=== PATIENT | male | born 1985 | race Two or more races ===

== ENCOUNTER 2018-11-12 08:45 | Emergency (ER) | payer SELFPAY ==
[~2018-11-12] VITALS: Ht 170.2 cm; Wt 86.4 kg
[2018-11-12 08:48] VITALS: Ht 170.2 cm; Wt 86.4 kg
[2018-11-12] MEDS ORDERED: KLONOPIN1 MG PO (08:50)
[2018-11-12] MEDS ORDERED: LEXAPRO20 MG PO (08:50)
[2018-11-12] MEDS ORDERED: AUGMENTIN 875-11 TAB PO (10:06)
[2018-11-12] MEDS ORDERED: FLUTICASONE PRO16 GM NASAL (10:06)
[2018-11-12 10:42] VITALS: BP 136/91
== END 2018-11-12 10:42 | disposition home or self-care (01) ==
LOC: D.ER 08:45
DX: J01.90 Acute sinusitis, unspecified (principal); R09.89 Other specified symptoms and signs involving the circulatory and respiratory systems; J02.9 Acute pharyngitis, unspecified; R51 Headache; M79.18 Myalgia, other site

== ENCOUNTER 2019-03-03 08:27 | Emergency (ER) | payer SELFPAY ==
[~2019-03-03] VITALS: Ht 170.2 cm; Wt 86.4 kg
[~2019-03-03 08:27] MED LIST: AUGMENTIN 875-11 TAB PO; FLUTICASONE PRO16 GM NASAL; KLONOPIN1 MG PO; LEXAPRO20 MG PO
[2019-03-03 08:35] VITALS: BP 140/73; Ht 170.2 cm; Wt 86.4 kg
[2019-03-03 09:06] LABS: BASOPHILS 0.3 % (0-2); EOSINOPHILS 2.6 % (0-7); HEMATOCRIT 42.1 % (42.0-54.0); HEMOGLOBIN 14.7 g/dL (13.5-17.5); IMMATURE GRANULOCYTES 0.2 % (0-5); LYMPHOCYTES 31.8 % (15-50); MCH 28.5 pg (26.0-34.0); MCHC 34.9 g/dL (31.0-37.0); MCV 81.6 fL (80.0-100.0); MEAN PLATELET VOLUME 10.9 fL (7.4-10.4); MONOCYTES 10.5 % (2-11); NEUTROPHILS 54.6 % (40-80); PLATELET COUNT 255 10x3/uL (130-400); RBC 5.16 10x6/uL (4.20-6.10); RDW 13.2 % (11.5-14.5); WBC 6.6 10x3/uL (4.8-10.8)
[2019-03-03 09:15] LABS: ALBUMIN 3.7 g/dL (3.4-5.0); ALKALINE PHOSPHATASE 129 U/L (46-116); ALT (SGPT) 38 U/L (10-68); BILIRUBIN - TOTAL 0.43 mg/dL (0.2-1.3); CALC OSMOLALITY 273 mosm/kg (275-300); CALCIUM 8.2 mg/dL (8.5-10.1); CARBON DIOXIDE 26.1 mmol/L (21.0-32.0); CHLORIDE - SERUM 103 mmol/L (98-107); CREATININE - SERUM 0.8 mg/dL (0.6-1.3); GLUCOSE 96 mg/dL (74-106); POTASSIUM - SERUM 3.9 mmol/L (3.5-5.1); PROTEIN - SERUM 7.5 g/dL (6.4-8.2); SODIUM 137 mmol/L (136-145); UREA NITROGEN 13 mg/dL (7-18); eGFR NON AFRICAN AMERICAN > 90 mL/min (90-120)
[2019-03-03] MEDS ORDERED: ALBUTEROL SULF8.5 GM INH (09:57)
[2019-03-03] MEDS ORDERED: TESSALON PERLE100 MG PO (09:57)
== END 2019-03-03 10:30 | disposition home or self-care (01) ==
LOC: D.ER 08:27
PROVIDERS: Family Medicine
DX: J20.9 Acute bronchitis, unspecified (principal); R05 Cough; F17.200 Nicotine dependence, unspecified, uncomplicated